=== PATIENT | male | born 1970 ===

== ENCOUNTER 2022-12-25 09:34 | Outpatient (REF) | payer MEDICAID, SELFPAY ==
--- NOTE | ~2022-12-25 | XR_ITS ---
EXAMINATION: XR SHOULDER, RIGHT CLINICAL INFORMATION: Right shoulder pain COMPARISON: MRI from 12/02/2022 and radiograph from 02/20/2015. TECHNIQUE: AP external rotation, Grashey, scapular Y, and axillary views of the right shoulder. FINDINGS: There are mild degenerative changes in the right shoulder with subchondral cysts formation in the region of greater tuberosity. The glenohumeral joint is preserved. Acromioclavicular joint is widened. Soft tissues unremarkable XR/XR shoulder RT min 2V IMPRESSION: Mild degenerative changes in the right shoulder.
== END 2022-12-25 09:35 | disposition home or self-care (01) ==
LOC: HO.HOSX 09:34
PROVIDERS: Visit Provider Orthopaedic Surgery
DX: M75.101 Unspecified rotator cuff tear or rupture of right shoulder, not specified as traumatic (principal); Z98.890 Other specified postprocedural states
CPT/HCPCS: 73030; 99202